=== PATIENT | male | born 1985 | race Caucasian/White ===

== ENCOUNTER 2021-06-18 19:29 | Emergency (ER) | payer BC, SELFPAY ==
--- NOTE | ~2021-06-18 | XR_ITS ---
EXAMINATION: XR CHEST CLINICAL INFORMATION: Chest pain COMPARISON: None TECHNIQUE: Frontal view of the chest was obtained. FINDINGS: Cardiac silhouette is normal in size. The lungs are well aerated. There is no lobar consolidation. Subtle lower lobe linear opacities are nonspecific but most suggestive of atelectasis. No pleural effusion or pneumothorax. 1 cm nodular density projecting over the right posterior fourth rib is nonspecific but statistically a bone island. XR/XR chest 1V IMPRESSION: Suspected bibasilar atelectasis.
[2021-06-18 19:36] VITALS: BP 139/70; PULSE 90; RESP 18; TEMP 36.6; O2SAT 98; BMI 28.5
--- NOTE | 2021-06-18 19:47 | ECG_ITS ---
Test Reason : CHEST PAIN Blood Pressure : / mmHG Vent. Rate : 067 BPM Atrial Rate : 067 BPM P-R Int : 134 ms QRS Dur : 104 ms QT Int : 364 ms P-R-T Axes : 057 -12 016 degrees QTc Int : 384 ms Sinus rhythm with marked sinus arrhythmia Otherwise normal ECG No previous ECGs available Referred By: Generic ED Physician Electronically Signed By:AWA DE SOUZA MD
[2021-06-18 20:04] LABS: MANUAL DIFF FLAG NO
[2021-06-18 20:07] LABS: Basophils Absolute Auto 0.1 X10*3/uL (0.0-0.2); Basophils Percent Auto 0.7 % (0-2); Eosinophils Absolute Auto 0.2 X10*3/uL (0.0-0.4); Eosinophils Percent Auto 2.7 % (0-4); Hematocrit 47.5 % (42-52); Hemoglobin 16.5 g/dl (14.0-18.0); Imm Gran Abs Auto 0.03 X10*3/uL (0.00-0.03); Imm Gran Pct Auto 0.3 % (0.0-0.4); Lymphocytes Absolute Auto 2.3 X10*3/uL (1.2-4.9); Mean Corpuscular HGB Conc 34.7 g/dl (31.0-36.0); Mean Corpuscular Hemoglobin 30.7 pg (27.0-33.0); Mean Corpuscular Volume 88.5 fL (80-98); Mean Platelet Volume 11.2 fL (9.4-12.4); Monocytes Absolute Auto 0.6 X10*3/uL (0.1-1.2); Monocytes Percent Auto 6.4 % (2-11); Neutrophils Absolute Auto 5.6 X10*3/uL (2.0-8.3); Neutrophils Percent Auto 63.9 % (45-73); Platelet Count 228 X10*3/uL (160-400); Red Blood Count 5.37 X10*6/uL (4.60-5.80); Red Cell Distribution Width 11.7 % (11.0-16.0); White Blood Count 8.8 X10*3/uL (4.8-10.8)
[2021-06-18 20:28] LABS: Anion Gap 13 (12-20); Blood Urea Nitrogen 18 mg/dL (9-16); Calcium 9.6 mg/dL (8.4-10.2); Carbon Dioxide 27 mmol/L (22-29); Chloride 104 mmol/L (96-108); Creatinine Clr Calc Pharmacy 80.6; Estimated Glomerular Filt Rate 52; Glucose Random 89 mg/dL (60-115); Sodium 140 mmol/L (135-145)
[2021-06-18 20:32] LABS: Troponin-I High Sensitivity < 3.5 ng/L (<3.5-35.0)
[2021-06-19 01:45] VITALS: BP 139/78; PULSE 57; RESP 16; TEMP 36.5; O2SAT 100
--- NOTE | 2021-06-19 02:05 | ED.CHESTPAIN ---
HPI - Chest Pain General Chief Complaint: Chest Pain Stated Complaint: chest pain Time Seen by Provider: 06/19/21 02:05 Source: patient Mode of arrival: ambulatory Limitations: no limitations History of Present Illness HPI narrative: Patient has been weaning off testosterone since April 12 complaining of dizziness nausea and decreased appetite chest pain off and on. Patient with multiple complaints has his increased anxiety. No chest pain at this time no palpitation Related Data Allergies Allergy/AdvReac Type Severity Reaction Status Date / Time No Known Allergies Allergy Verified 06/18/21 19:36 Review of Systems Review of Systems: Yes all other systems are reviewed and are negative [facility] Past Medical History Medical History Asthma Social History Social History Advance Directives: No Advance Directives Information Provided: No Physical Exam Vital Signs: Vital Signs: Last Vital Signs Temp 97.7 F 06/19/21 01:45 Pulse 57 06/19/21 01:45 Resp 16 06/19/21 01:45 BP 139/78 06/19/21 01:45 Pulse Ox 100 06/19/21 01:45 Body Mass Index 28.5 Appearance: Alert. Oriented X3. No acute distress. Eyes: No pallor or icterus ENT: Pharynx normal. Oral Mucosa moist Neck: Normal inspection. Neck supple. CVS: Normal heart rate and rhythm. Pulses normal. Respiratory: No respiratory distress. Equal air entry bilateral, no wheezing/rales/rhonchi Abdomen: Soft and nontender. Bowel sounds are present, no mass palpable, no CVA tenderness Skin: Skin warm and dry. Normal skin color. Normal skin turgor. Extremities: No lower extremity edema. No calf tenderness Neuro: Oriented X 3. No motor deficit. MDM - Chest Pain MDM Narrative Medical decision making narrative: Patient with in elevated creatinine secondary to medication testosterone which he was taking . Patient advised to drink plenty of fluids and follow with PCP to recheck kidney functions Lab Data Attestation: I reviewed the patient's lab results. Result diagrams: 06/18/21 19:57 06/18/21 19:57 Labs: Lab Results 06/18/21 06/18/21 06/18/21 Range/Units 19:57 19:57 19:57 WBC 8.8 (4.8-10.8) X10*3/uL RBC 5.37 (4.60-5.80) X10*6/uL Hgb 16.5 (14.0-18.0) g/dl Hct 47.5 (42-52) % MCV 88.5 (80-98) fL MCH 30.7 (27.0-33.0) pg MCHC 34.7 (31.0-36.0) g/dl RDW 11.7 (11.0-16.0) % Plt Count 228 (160-400) X10*3/uL MPV 11.2 (9.4-12.4) fL Immature Gran % (Auto) 0.3 (0.0-0.4) % Neut % (Auto) 63.9 (45-73) % Lymph % (Auto) 26.0 (20-40) % Alexander % (Auto) 6.4 (2-11) % Eos % (Auto) 2.7 (0-4) % Baso % (Auto) 0.7 (0-2) % Lymph # (Auto) 2.3 (1.2-4.9) X10*3/uL Alexander # (Auto) 0.6 (0.1-1.2) X10*3/uL Eos # (Auto) 0.2 (0.0-0.4) X10*3/uL Baso # (Auto) 0.1 (0.0-0.2) X10*3/uL Abs Immat Gran (auto) 0.03 (0.00-0.03) X10*3/uL Absolute Neuts (auto) 5.6 (2.0-8.3) X10*3/uL Absolute Nucleated RBC 0.000 (0.0-0.012) X10*3/uL Nucleated RBC % (auto) 0.0 (0.0-0.2) /100WBC Sodium 140 (135-145) mmol/L Potassium 4.0 (3.3-5.1) mmol/L Chloride 104 (96-108) mmol/L Carbon Dioxide 27 (22-29) mmol/L Anion Gap 13 (12-20) BUN 18 H (9-16) mg/dL Creatinine 1.56 H (0.5-1.4) mg/dL Estim Creat Clear Calc 80.6 Estimated GFR 52 Random Glucose 89 (60-115) mg/dL Calcium 9.6 (8.4-10.2) mg/dL Troponin I High Sens < 3.5 (<3.5-35.0) ng/L ECG Data ECG #1: Interpretation: Normal sinus rhythm with marked sinus arrhythmia heart rate 57 beats per minute no acute ischemic changes impression no acute ischemia Discharge Plan Discharge Clinical Impression: BENTLEY (acute kidney injury) Patient Disposition: Home, Self-Care Instructions: Acute Kidney Injury (DC) Additional Instructions: Drink plenty of fluids Do not take any medication which is not prescribed. Follow with PCP to recheck her kidney functions in 1 week Interventions: ED Discharge Assessment Last Done: 06/19/21 02:26
== END 2021-06-19 02:26 | disposition home or self-care (01) ==
PROVIDERS: Emergency Provider Internal Medicine; PCP Internal Medicine
DX: N17.9 Acute kidney failure, unspecified (principal); Z79.890 Hormone replacement therapy
CPT/HCPCS: 36415; 71045; 80048; 84484; 85025; 93005; 99283; 99284

== ENCOUNTER 2021-06-26 16:07 | Outpatient (REF) | payer BC, SELFPAY ==
--- NOTE | ~2021-06-26 | XR_ITS ---
EXAMINATION: XR CHEST CLINICAL INFORMATION: Atelectasis. COMPARISON: Chest radiograph dated 06/18/2021. TECHNIQUE: 2 views of the chest were obtained. FINDINGS: The lungs are clear. The cardiomediastinal silhouette is normal in size. There is no pleural effusion or pneumothorax. No acute osseous abnormality. XR/XR chest 2V IMPRESSION: No acute cardiopulmonary findings.
[2021-06-26 17:07] LABS: MANUAL DIFF FLAG NO
[2021-06-26 17:19] LABS: Basophils Percent Auto 0.6 % (0-2); Eosinophils Absolute Auto 0.2 X10*3/uL (0.0-0.4); Eosinophils Percent Auto 3.5 % (0-4); Hematocrit 47.1 % (42-52); Hemoglobin 16.2 g/dl (14.0-18.0); Imm Gran Abs Auto 0.01 X10*3/uL (0.00-0.03); Imm Gran Pct Auto 0.2 % (0.0-0.4); Lymphocytes Absolute Auto 2.3 X10*3/uL (1.2-4.9); Lymphocytes Percent Auto 36.9 % (20-40); Mean Corpuscular HGB Conc 34.4 g/dl (31.0-36.0); Mean Corpuscular Hemoglobin 30.6 pg (27.0-33.0); Mean Corpuscular Volume 88.9 fL (80-98); Mean Platelet Volume 12.2 fL (9.4-12.4); Monocytes Absolute Auto 0.4 X10*3/uL (0.1-1.2); Monocytes Percent Auto 7.1 % (2-11); Neutrophils Absolute Auto 3.2 X10*3/uL (2.0-8.3); Neutrophils Percent Auto 51.7 % (45-73); Platelet Count 217 X10*3/uL (160-400); Red Cell Distribution Width 11.5 % (11.0-16.0); White Blood Count 6.2 X10*3/uL (4.8-10.8)
[2021-06-26 17:37] LABS: Alanine Aminotransferase 30 U/L (0-40); Albumin Level 4.8 g/dL (3.5-5.0); Alkaline Phosphatase 49 U/L (39-117); Anion Gap 13 (12-20); Aspartate Amino Transferase 29 U/L (5-37); Bilirubin Total 0.3 mg/dL (0.0-1.0); Blood Urea Nitrogen 17 mg/dL (9-16); Calcium 9.6 mg/dL (8.4-10.2); Carbon Dioxide 28 mmol/L (22-29); Chloride 102 mmol/L (96-108); Estimated Glomerular Filt Rate 56; Glucose Random 88 mg/dL (60-115); Potassium 4.2 mmol/L (3.3-5.1); Sodium 139 mmol/L (135-145); Total Protein 7.7 g/dL (6.5-8.0)
== END 2021-06-26 16:08 | disposition home or self-care (01) ==
LOC: HO.XRAY 16:07
PROVIDERS: Physician Assistant; PCP Internal Medicine; Visit Provider Internal Medicine
DX: N17.9 Acute kidney failure, unspecified (principal)
CPT/HCPCS: 36415; 71046; 80053; 85025

== ENCOUNTER 2021-07-11 15:01 | Outpatient (REF) | payer BC, SELFPAY ==
[2021-07-11 15:27] LABS: MANUAL DIFF FLAG NO
[2021-07-11 15:30] LABS: Basophils Percent Auto 0.7 % (0-2); Eosinophils Absolute Auto 0.2 X10*3/uL (0.0-0.4); Hematocrit 46.1 % (42-52); Hemoglobin 16.2 g/dl (14.0-18.0); Imm Gran Abs Auto 0.01 X10*3/uL (0.00-0.03); Imm Gran Pct Auto 0.2 % (0.0-0.4); Lymphocytes Absolute Auto 1.7 X10*3/uL (1.2-4.9); Lymphocytes Percent Auto 30.5 % (20-40); Mean Corpuscular HGB Conc 35.1 g/dl (31.0-36.0); Mean Corpuscular Hemoglobin 30.7 pg (27.0-33.0); Mean Corpuscular Volume 87.5 fL (80-98); Mean Platelet Volume 11.3 fL (9.4-12.4); Monocytes Absolute Auto 0.4 X10*3/uL (0.1-1.2); Monocytes Percent Auto 6.8 % (2-11); Neutrophils Absolute Auto 3.2 X10*3/uL (2.0-8.3); Neutrophils Percent Auto 57.8 % (45-73); Platelet Count 209 X10*3/uL (160-400); Red Blood Count 5.27 X10*6/uL (4.60-5.80); Red Cell Distribution Width 11.4 % (11.0-16.0); White Blood Count 5.5 X10*3/uL (4.8-10.8)
[2021-07-11 15:46] LABS: Alanine Aminotransferase 38 U/L (0-40); Albumin Level 4.9 g/dL (3.5-5.0); Alkaline Phosphatase 50 U/L (39-117); Anion Gap 11 (12-20); Aspartate Amino Transferase 37 U/L (5-37); Bilirubin Total 0.6 mg/dL (0.0-1.0); Blood Urea Nitrogen 19 mg/dL (9-16); Calcium 9.9 mg/dL (8.4-10.2); Carbon Dioxide 30 mmol/L (22-29); Chloride 103 mmol/L (96-108); Estimated Glomerular Filt Rate 60; Glucose Random 82 mg/dL (60-115); Potassium 4.4 mmol/L (3.3-5.1); Sodium 140 mmol/L (135-145); Total Protein 7.9 g/dL (6.5-8.0)
== END 2021-07-11 15:02 | disposition home or self-care (01) ==
LOC: HO.LAB 15:01
PROVIDERS: PCP Internal Medicine; Visit Provider Physician Assistant
DX: N17.9 Acute kidney failure, unspecified (principal)
CPT/HCPCS: 36415; 80053; 85025

== ENCOUNTER 2021-08-29 15:57 | Outpatient (REF) | payer BC, SELFPAY ==
[2021-09-02 14:56] LABS: Testosterone, Free 54.2 pg/mL (35.0-155.0); Testosterone, Total 278 ng/dL (250-1100)
== END 2021-08-29 15:58 | disposition home or self-care (01) ==
LOC: HO.LAB 15:57
PROVIDERS: PCP Internal Medicine; Visit Provider Physician Assistant
DX: R79.89 Other specified abnormal findings of blood chemistry (principal)
CPT/HCPCS: 36415; 84402; 84403

== ENCOUNTER 2021-11-07 10:01 | Outpatient (REF) | payer BC, SELFPAY ==
[2021-11-07 11:39] LABS: Alanine Aminotransferase 44 U/L (0-40); Albumin Level 4.8 g/dL (3.5-5.0); Alkaline Phosphatase 45 U/L (39-117); Anion Gap 13 (12-20); Aspartate Amino Transferase 33 U/L (5-37); Bilirubin Total 0.5 mg/dL (0.0-1.0); Blood Urea Nitrogen 20 mg/dL (9-16); Calcium 9.9 mg/dL (8.4-10.2); Carbon Dioxide 28 mmol/L (22-29); Chloride 104 mmol/L (96-108); Cholesterol 177 mg/dL; Estimated Glomerular Filt Rate 58; Glucose Fasting 84 mg/dL (60-99); HDL Cholesterol 54 mg/dL; LDL Cholesterol Calculated 107 mg/dl; Potassium 4.2 mmol/L (3.3-5.1); Sodium 141 mmol/L (135-145); Total Protein 7.6 g/dL (6.5-8.0); Triglycerides 81 mg/dL
== END 2021-11-07 10:02 | disposition home or self-care (01) ==
LOC: HO.MANLDS 10:01
PROVIDERS: PCP Physician Assistant; Visit Provider Physician Assistant
DX: Z00.00 Encounter for general adult medical examination without abnormal findings (principal); N17.9 Acute kidney failure, unspecified
CPT/HCPCS: 36415; 80053; 80061

== ENCOUNTER 2022-03-12 10:06 | Outpatient (REF) | payer BC, SELFPAY ==
[2022-03-12 11:17] LABS: Hematocrit 44.4 % (42.0-52.0); Hemoglobin 15.3 g/dl (14.0-18.0); Mean Corpuscular HGB Conc 34.5 g/dl (31.0-36.0); Mean Corpuscular Hemoglobin 30.2 pg (27.0-33.0); Mean Corpuscular Volume 87.7 fL (80.0-98.0); Mean Platelet Volume 11.9 fL (9.4-12.4); Platelet Count 194 X10*3/uL (160-400); Red Blood Count 5.06 X10*6/uL (4.60-5.80); Red Cell Distribution Width 11.8 % (11.0-16.0); White Blood Count 4.8 X10*3/uL (4.8-10.8)
[2022-03-12 11:36] LABS: Alanine Aminotransferase 28 U/L (0-40); Albumin Level 4.9 g/dL (3.5-5.0); Alkaline Phosphatase 51 U/L (39-117); Anion Gap 11 (12-20); Aspartate Amino Transferase 31 U/L (5-37); Bilirubin Total 0.9 mg/dL (0.0-1.0); Blood Urea Nitrogen 18 mg/dL (9-16); C Reactive Protein 0.04 mg/dL (< or = 0.50); Calcium 10.7 mg/dL (8.4-10.2); Carbon Dioxide 29 mmol/L (22-29); Chloride 103 mmol/L (96-108); Cholesterol 176 mg/dL; Estimated Glomerular Filt Rate 58; Gamma Glutamyl Transpeptidase 23 U/L (11-51); Glucose Random 86 mg/dL (60-115); HDL Cholesterol 56 mg/dL; LDL Cholesterol Calculated 104 mg/dl; Potassium 4.1 mmol/L (3.3-5.1); Sodium 139 mmol/L (135-145); Triglycerides 82 mg/dL
[2022-03-12 11:46] LABS: Free T4 (Free Thyroxine) 1.09 ng/dL (0.71-1.85); Thyroid Stimulating Hormone 1.32 uIU/mL (0.32-4.0)
[2022-03-12 12:18] LABS: Insulin 6 uU/mL (2-29)
[2022-03-13 14:11] LABS: Calcium (PTHI) 10.1 mg/dL (8.6-10.3); PTHI 37 pg/mL (16-77)
[2022-03-14 06:56] LABS: Triiodothyronine T3 Free 3.4 pg/mL (2.3-4.2)
[2022-03-14 07:21] LABS: Follicle Stimulating Hormone 5.5 mIU/mL (1.6-8.0); Lutenizing Hormone 2.7 mIU/mL (1.5-9.3)
[2022-03-14 08:11] LABS: DHEA Sulfate 366 mcg/dL (93-415)
[2022-03-14 10:26] LABS: Thyroglobulin Antibodies <1 IU/mL (< or = 1); Thyroid Peroxidase Antibodies 1 IU/mL (<9)
[2022-03-14 16:57] LABS: Homocysteine 9.1 umol/L (<11.4)
[2022-03-18 04:27] LABS: Dihydrotestosterone 35 ng/dL (12-65)
[2022-03-18 16:12] LABS: Testosterone, Free 61.5 pg/mL (35.0-155.0); Testosterone, Total 392 ng/dL (250-1100)
[2022-03-19 08:06] LABS: Triiodothyronine T3 Reverse 19 ng/dL (8-25)
[2022-03-21 22:17] LABS: Estradiol Free 0.42 pg/mL; Estradiol, Ultrasensitive 20 pg/mL (< OR = 29)
== END 2022-03-12 10:07 | disposition home or self-care (01) ==
LOC: HO.LAB 10:06
PROVIDERS: PCP Internal Medicine; Visit Provider Internal Medicine
DX: E03.9 Hypothyroidism, unspecified (principal); E29.1 Testicular hypofunction; E11.9 Type 2 diabetes mellitus without complications; D64.9 Anemia, unspecified; K76.0 Fatty (change of) liver, not elsewhere classified; R53.83 Other fatigue; E55.9 Vitamin D deficiency, unspecified
CPT/HCPCS: 36415; 80053; 80061; 82306; 82627; 82642; 82670; 82681; 82977; 83001; 83002; 83090; 83525; 83970; 84402; 84403; 84439; 84443; 84481; 84482; 85027; 86140; 86376; 86800

== ENCOUNTER 2022-05-29 09:16 | Outpatient (REF) | payer BC, SELFPAY ==
[2022-05-29 09:40] LABS: Hematocrit 46.4 % (42.0-52.0); Mean Corpuscular HGB Conc 34.5 g/dl (31.0-36.0); Mean Corpuscular Hemoglobin 30.2 pg (27.0-33.0); Mean Corpuscular Volume 87.7 fL (80.0-98.0); Mean Platelet Volume 10.9 fL (9.4-12.4); Platelet Count 245 X10*3/uL (160-400); Red Blood Count 5.29 X10*6/uL (4.60-5.80); White Blood Count 5.9 X10*3/uL (4.8-10.8)
[2022-05-29 09:55] LABS: Alanine Aminotransferase 28 U/L (0-40); Albumin Level 4.8 g/dL (3.5-5.0); Alkaline Phosphatase 50 U/L (39-117); Anion Gap 10 (12-20); Aspartate Amino Transferase 30 U/L (5-37); Bilirubin Total 0.8 mg/dL (0.0-1.0); Blood Urea Nitrogen 13 mg/dL (9-16); Calcium 9.4 mg/dL (8.4-10.2); Carbon Dioxide 28 mmol/L (22-29); Chloride 104 mmol/L (96-108); Estimated Glomerular Filt Rate 58; Glucose Random 90 mg/dL (60-115); Potassium 4.4 mmol/L (3.3-5.1); Sodium 138 mmol/L (135-145); Total Protein 7.6 g/dL (6.5-8.0)
[2022-05-29 10:14] LABS: Prostate Specific Antigen 0.57 ng/mL (<0.05-4.0)
[2022-06-06 04:51] LABS: Estradiol Free 1.12 pg/mL; Estradiol, Ultrasensitive 52 pg/mL (< OR = 29)
== END 2022-05-29 09:17 | disposition home or self-care (01) ==
LOC: HO.LAB 09:16
PROVIDERS: PCP Internal Medicine; Referring Provider Internal Medicine; Visit Provider Physician Assistant
DX: Z12.5 Encounter for screening for malignant neoplasm of prostate (principal); N19 Unspecified kidney failure; E29.1 Testicular hypofunction; E11.9 Type 2 diabetes mellitus without complications; D64.9 Anemia, unspecified; R53.83 Other fatigue
CPT/HCPCS: 80053; 82610; 82642; 82670; 82681; 84153; 84402; 84403; 85027

== ENCOUNTER 2022-07-27 08:49 | Outpatient (REF) | payer BC, SELFPAY | END 2022-07-27 08:50 | disposition home or self-care (01) | LOC: HO.LAB 08:49 | PROVIDERS: PCP Internal Medicine; Visit Provider Physician Assistant | DX: Z13.89 Encounter for screening for other disorder (principal) ==

== ENCOUNTER 2023-02-26 18:15 | Emergency (ER) | payer BC, SELFPAY ==
--- NOTE | ~2023-02-26 | CT_ITS ---
EXAMINATION: CT HEAD WITHOUT CONTRAST CLINICAL INFORMATION: dizziness/facial and arm numbness COMPARISON: None. TECHNIQUE: Multidetector volumetric imaging of the head was performed without intravenous contrast material. This CT examination was performed using dose optimization techniques as appropriate, variously including the following: *Automated exposure control *Adjustment of mA and/or kV according to patient size (this includes techniques or standardized protocols for targeted exams where dose is matched to indication/reason for exam; i.e. extremities or head) *Use of iterative reconstruction technique Dose: 636 mGy-cm FINDINGS: There is no evidence of acute intracranial hemorrhage or territorial infarction. No abnormal mass-effect or midline shift is seen. Stovall to white matter differentiation is well preserved. No extra axial fluid collections. The ventricles are normal in size and configuration. There is no abnormal attenuation within the brain parenchyma. The soft tissues and osseous structures are normal. The sinuses and mastoid air cells are clear. CT/CT head/brain wo IV con IMPRESSION: No acute intracranial pathology.
[2023-02-26 18:18] VITALS: BP 147/94; PULSE 78; RESP 18; TEMP 36.1; O2SAT 99; BMI 28.5
--- NOTE | 2023-02-26 18:18 | ED.NEUROSD ---
HPI - Neuro Symptoms/Deficit General Chief Complaint: General Medical Stated Complaint: dizziness,numbness to face Time Seen by Provider: 02/26/23 18:57 Related Data Previous Rx's Medication Instructions Recorded alprazolam 0.5 mg tablet (Xanax) 0.5 mg PO TID PRN anxiety #5 tabs 02/26/23 Allergies Allergy/AdvReac Type Severity Reaction Status Date / Time No Known Allergies Allergy Verified 02/26/23 18:21 [facility] Past Medical History Medical History Asthma Social History Social History Alcohol intake: current Alcohol intake frequency: a few times a week Smoked in Last 30 Days: No Use of substances other than those prescribed or required for medical reasons: No Advance Directives: No Advance Directives Information Provided: No Physical Exam Vital Signs: Vital Signs: Last Vital Signs Temp 97.5 F 02/26/23 19:47 Pulse 62 02/26/23 20:09 Resp 17 02/26/23 20:09 BP 128/79 02/26/23 20:09 Pulse Ox 99 02/26/23 19:47 O2 Del Method Room Air 02/26/23 20:09 BMI result Body Mass Index 28.5 Course Course Course Narrative: This is a rapid medical exam. Deferred additional HPI, ROS, PE to primary provider. 37 yo male with a history of asthma, on low dose testosterone here with complaints of intermittent episodes of dizziness described as feeling lightheaded, facial numbness, arm numbness, feels his jaw his tight x several months. Will obtain labs, EKG, CT head. VSS Medical Decision Making Lab Data 02/26/23 19:00 02/26/23 19:00 Labs: Lab Results 02/26/23 02/26/23 02/26/23 Range/Units 19:00 19:00 19:00 WBC 6.1 (4.8-10.8) X10*3/uL RBC 5.34 (4.60-5.80) X10*6/uL Hgb 16.3 (14.0-18.0) g/dl Hct 46.5 (42.0-52.0) % MCV 87.1 (80.0-98.0) fL MCH 30.5 (27.0-33.0) pg MCHC 35.1 (31.0-36.0) g/dl RDW 12.1 (11.0-16.0) % Plt Count 238 (160-400) X10*3/uL MPV 11.2 (9.4-12.4) fL Immature Gran % (Auto) 0.2 (0.0-0.4) % Neut % (Auto) 56.9 (45-73) % Lymph % (Auto) 34.3 (20-40) % Woodford % (Auto) 5.4 (2-11) % Eos % (Auto) 2.5 (0-4) % Baso % (Auto) 0.7 (0-2) % Lymph # (Auto) 2.1 (1.2-4.9) X10*3/uL [place]ford # (Auto) 0.3 (0.1-1.2) X10*3/uL Eos # (Auto) 0.2 (0.0-0.4) X10*3/uL Baso # (Auto) 0.0 (0.0-0.2) X10*3/uL Abs Immat Gran (auto) 0.01 (0.00-0.03) X10*3/uL Absolute Neuts (auto) 3.5 (2.0-8.3) x10*3/uL Absolute Nucleated RBC 0.000 (0.0-0.012) X10*3/uL Nucleated RBC % (auto) 0.0 (0.0-0.2) /100WBC Sodium 141 (135-145) mmol/L Potassium 3.9 (3.3-5.1) mmol/L Chloride 105 (96-108) mmol/L Carbon Dioxide 29 (22-29) mmol/L Anion Gap 11 L (12-20) BUN 15 (9-16) mg/dL Creatinine 1.30 (0.5-1.4) mg/dL Estim Creat Clear Calc 94.9 Estimated GFR > 60 Random Glucose 84 (60-115) mg/dL Calcium 9.6 (8.4-10.2) mg/dL Magnesium 2.2 (1.6-2.6) mg/dL Total Bilirubin 0.9 (0.0-1.0) mg/dL Direct Bilirubin 0.3 (0.0-0.5) mg/dL AST 35 (5-37) U/L ALT 34 (0-40) U/L Alkaline Phosphatase 54 (39-117) U/L Troponin I High Sens < 2.7 (<3.5-35.0) ng/L Total Protein 7.5 (6.5-8.0) g/dL Albumin 4.7 (3.5-5.0) g/dL Discharge Plan Discharge Clinical Impression: Anxiety Patient Disposition: Home, Self-Care Instructions: Anxiety (ED) Prescriptions: New alprazolam [Xanax] 0.5 mg tablet 0.5 mg PO TID PRN (Reason: anxiety) Qty: 5 0RF Referrals: Panchito Mercado MD [Primary Care Provider] - Interventions: ED Discharge Assessment Last Done: 02/26/23 20:19 Discharge Date/Time: 02/26/23 20:20
--- NOTE | 2023-02-26 18:20 | ECG_ITS ---
Test Reason : Dissiness Blood Pressure : / mmHG Vent. Rate : 062 BPM Atrial Rate : 062 BPM P-R Int : 154 ms QRS Dur : 104 ms QT Int : 378 ms P-R-T Axes : 054 -01 013 degrees QTc Int : 383 ms Normal sinus rhythm with sinus arrhythmia Incomplete right bundle branch block Borderline ECG When compared with ECG of 18-JUN-2021 19:51, No significant change was found Referred By: Jasmine Mckeon Electronically Signed By:RUSH NUNES
[2023-02-26 19:05] LABS: MANUAL DIFF FLAG NO
[2023-02-26 19:11] LABS: Basophils Percent Auto 0.7 % (0-2); Eosinophils Absolute Auto 0.2 X10*3/uL (0.0-0.4); Eosinophils Percent Auto 2.5 % (0-4); Hematocrit 46.5 % (42.0-52.0); Hemoglobin 16.3 g/dl (14.0-18.0); Imm Gran Abs Auto 0.01 X10*3/uL (0.00-0.03); Imm Gran Pct Auto 0.2 % (0.0-0.4); Lymphocytes Absolute Auto 2.1 X10*3/uL (1.2-4.9); Lymphocytes Percent Auto 34.3 % (20-40); Mean Corpuscular HGB Conc 35.1 g/dl (31.0-36.0); Mean Corpuscular Hemoglobin 30.5 pg (27.0-33.0); Mean Corpuscular Volume 87.1 fL (80.0-98.0); Mean Platelet Volume 11.2 fL (9.4-12.4); Monocytes Absolute Auto 0.3 X10*3/uL (0.1-1.2); Monocytes Percent Auto 5.4 % (2-11); Neutrophils Absolute Auto 3.5 x10*3/uL (2.0-8.3); Neutrophils Percent Auto 56.9 % (45-73); Platelet Count 238 X10*3/uL (160-400); Red Blood Count 5.34 X10*6/uL (4.60-5.80); Red Cell Distribution Width 12.1 % (11.0-16.0); White Blood Count 6.1 X10*3/uL (4.8-10.8)
--- NOTE | 2023-02-26 19:14 | ED_ITS ---
HPI - General Adult General Chief complaint: General Medical Stated complaint: dizziness,numbness to face Time Seen by Provider: 02/26/23 18:57 History of Present Illness HPI narrative: Patient is a 37-year-old male with a history of anxiety. Patient felt dizzy feels tingling sensation over the face over the arm been ongoing for weeks. Had neck pain to the bilateral side aspect worse with turning his head that is been ongoing for few weeks. Patient was seen at urgent care told was more likely musculoskeletal. He has no focal weakness. He has no changes in speech. He has no recreational drug use other than marijuana. Patient denies any history of diabetes, hypertension, high cholesterol, smoking. No history of [place]. patient from home. No sudden in the family. No travel history no leg pain. No leg cramping. No diaphoresis. No sudden deaths in the family. He claims he got his testosterone level checked. The slightly low he was on testosterone treatment. No anabolic steroids. Related Data Previous Rx's Medication Instructions Recorded alprazolam 0.5 mg tablet (Xanax) 0.5 mg PO TID PRN anxiety #5 tabs 02/26/23 Allergies Allergy/AdvReac Type Severity Reaction Status Date / Time No Known Allergies Allergy Verified 02/26/23 18:21 Review of Systems Review of Systems: No fever no chills no chest pain or shortness of breath. Positive tingling sensation over bilateral hands in feeds Yes all other systems are reviewed and are negative [facility] Past Medical History Attestation statement: The following information was validated with the patient. Medical History Asthma Social History Social History Alcohol intake: current Alcohol intake frequency: a few times a week Smoked in Last 30 Days: No Use of substances other than those prescribed or required for medical reasons: No Advance Directives: No Advance Directives Information Provided: No Physical Exam ED Vital Signs: Vital Signs - 24 hr 02/26/23 18:18 02/26/23 19:47 Temperature 97.0 F 97.5 F Pulse Rate 78 65 Respiratory Rate 18 18 Blood Pressure 147/94 H 129/73 Pulse Oximetry 99 99 Oxygen Delivery Method Room Air Room Air BMI result Body Mass Index 28.5 Appearance: Alert. Oriented X3. No acute distress. Eyes: Pupils equal, round and reactive to light. ENT: Pharynx normal. Neck: Normal inspection. Neck supple. No lymph nodes noted. No crepitus CVS: Normal heart rate and rhythm. Pulses normal. Normal S1 and S2 Respiratory: No respiratory distress. Breath sounds normal. No Wheezing. No rales Abdomen: Soft and nontender. No rigidity. No distention. good BS x4 Skin: Skin warm and dry. Normal skin color. Normal skin turgor. Extremities: No lower extremity edema. Neurovascular intact to all extremities. No Lacerations. No Rash Neuro: Oriented X 3. No motor deficit. No sensory deficit. Moving all extermities. No slurred speech. Cranial nerve intact NIH Stroke Scale Internal: Initial- Upon Arrival Time: 19:17 Level of Consciousness: Alert Level of Consciousness Questions: Answers both questions correctly Level of Consciousness Commands: Performs both tasks correctly Best Gaze: Normal Visual: No visual loss Facial Palsy: Normal Motor Arm (Right): No drift Motor Arm (Left): No drift Motor Leg (Right): No drift Motor Leg (Left): No drift Limb Ataxia: Absent Sensory: Normal Best Language: No aphasia Dysarthia: Normal Extinction and Inattention: No abnormality Score: 0 Medical Decision Making Medical Decision Making [facility] Narrative: Patient is well appearing has diffuse tingling. Question neck pain. His neck is completely supple. Pain is been ongoing. Less likely secondary to meni ngitis. More likely secondary to musculoskeletal pain and anxiety. He has no significant cardiac risk factor. Patient's hemoglobin is normal. No evidence of anemia. His EKG is normal. His troponin is negative. He is 37 years old. His heart score is less than 3. Will have patient follow-up on an outpatient basis. A Joint decision was made with him. More likely patient's symptoms secondary to anxiety. We will give a small dose of Xanax for the next few days. Will have patient closely follow-up with his primary physician. In stable condition. Differential Diagnosis Differential Diagnoses: The differential diagnosis associated with the presentation includes Anxiety, neck pain, depression Admission/Observation Consideration of admission/observation: Escalation of care including admission/observation considered No need for admission is patient is well appearing neurologically intact. Lab Data [facility] Lab Attestation statement: I reviewed the patient's lab results. 02/26/23 19:00 02/26/23 19:00 Labs: Lab Results 02/26/23 02/26/23 02/26/23 Range/Units 19:00 19:00 19:00 WBC 6.1 (4.8-10.8) X10*3/uL RBC 5.34 (4.60-5.80) X10*6/uL Hgb 16.3 (14.0-18.0) g/dl Hct 46.5 (42.0-52.0) % MCV 87.1 (80.0-98.0) fL MCH 30.5 (27.0-33.0) pg MCHC 35.1 (31.0-36.0) g/dl RDW 12.1 (11.0-16.0) % Plt Count 238 (160-400) X10*3/uL MPV 11.2 (9.4-12.4) fL Immature Gran % (Auto) 0.2 (0.0-0.4) % Neut % (Auto) 56.9 (45-73) % Lymph % (Auto) 34.3 (20-40) % Cameron % (Auto) 5.4 (2-11) % Eos % (Auto) 2.5 (0-4) % Baso % (Auto) 0.7 (0-2) % Lymph # (Auto) 2.1 (1.2-4.9) X10*3/uL Cameron # (Auto) 0.3 (0.1-1.2) X10*3/uL Eos # (Auto) 0.2 (0.0-0.4) X10*3/uL Baso # (Auto) 0.0 (0.0-0.2) X10*3/uL Abs Immat Gran (auto) 0.01 (0.00-0.03) X10*3/uL Absolute Neuts (auto) 3.5 (2.0-8.3) x10*3/uL Absolute Nucleated RBC 0.000 (0.0-0.012) X10*3/uL Nucleated RBC % (auto) 0.0 (0.0-0.2) /100WBC Sodium 141 (135-145) mmol/L Potassium 3.9 (3.3-5.1) mmol/L Chloride 105 (96-108) mmol/L Carbon Dioxide 29 (22-29) mmol/L Anion Gap 11 L (12-20) BUN 15 (9-16) mg/dL Creatinine 1.30 (0.5-1.4) mg/dL Estim Creat Clear Calc 94.9 Estimated GFR > 60 Random Glucose 84 (60-115) mg/dL Calcium 9.6 (8.4-10.2) mg/dL Magnesium 2.2 (1.6-2.6) mg/dL Total Bilirubin 0.9 (0.0-1.0) mg/dL Direct Bilirubin 0.3 (0.0-0.5) mg/dL AST 35 (5-37) U/L ALT 34 (0-40) U/L Alkaline Phosphatase 54 (39-117) U/L Troponin I High Sens < 2.7 (<3.5-35.0) ng/L Total Protein 7.5 (6.5-8.0) g/dL Albumin 4.7 (3.5-5.0) g/dL Independent Interpretation I performed an independent interpretation of an: EKG Interpretation: Sinus heart rate is 70 MT QRS QT within normal limits there is no acute ST segment elevation noted. Discharge Plan Discharge Clinical Impression: Anxiety Patient Disposition: Home, Self-Care Instructions: Anxiety (ED) Prescriptions: New alprazolam [Xanax] 0.5 mg tablet 0.5 mg PO TID PRN (Reason: anxiety) Qty: 5 0RF Referrals: Panchito Mercado MD [Primary Care Provider] -
[2023-02-26 19:27] LABS: Alanine Aminotransferase 34 U/L (0-40); Albumin Level 4.7 g/dL (3.5-5.0); Alkaline Phosphatase 54 U/L (39-117); Anion Gap 11 (12-20); Aspartate Amino Transferase 35 U/L (5-37); Bilirubin Direct 0.3 mg/dL (0.0-0.5); Bilirubin Total 0.9 mg/dL (0.0-1.0); Blood Urea Nitrogen 15 mg/dL (9-16); Calcium 9.6 mg/dL (8.4-10.2); Carbon Dioxide 29 mmol/L (22-29); Chloride 105 mmol/L (96-108); Creatinine Clr Calc Pharmacy 94.9; Estimated Glomerular Filt Rate > 60; Glucose Random 84 mg/dL (60-115); Magnesium 2.2 mg/dL (1.6-2.6); Potassium 3.9 mmol/L (3.3-5.1); Sodium 141 mmol/L (135-145); Total Protein 7.5 g/dL (6.5-8.0)
[2023-02-26 19:28] LABS: Troponin-I High Sensitivity < 2.7 ng/L (<3.5-35.0)
--- NOTE | 2023-02-26 19:30 | PC.NURSE ---
Patient presenting with dizziness and facial numbness. Patient sinus on monitor and is moving all extremities without issue.
[2023-02-26 19:47] VITALS: BP 129/73; PULSE 65; RESP 18; TEMP 36.4; O2SAT 99
[2023-02-26 20:09] VITALS: BP 128/79; PULSE 62; RESP 17
== END 2023-02-26 20:20 | disposition home or self-care (01) ==
PROVIDERS: Nurse Practitioner Family; Emergency Provider Emergency Medicine Emergency Medical Services; PCP Internal Medicine
DX: R42 Dizziness and giddiness (principal); R94.31 Abnormal electrocardiogram [ECG] [EKG]; R20.0 Anesthesia of skin; F41.1 Generalized anxiety disorder; F43.0 Acute stress reaction; R51.9 Headache, unspecified; Z79.899 Other long term (current) drug therapy
CPT/HCPCS: 36415; 70450; 80048; 80076; 83735; 84484; 85025; 93005; 99284

== ENCOUNTER 2025-10-31 10:50 | Outpatient (REF) | payer BC, SELFPAY ==
--- OUTSIDE RECORDS SUMMARY | 2025-10-31 13:34 | XMS_ITS ---
Author Name [facility] Organization Unknown Results Test Name/Text Value Interpretation Date Range Source T vaginalis rRNA Spec Ql UMBERTO+probe NOT DETECTED Normal 12/27/2024 - [facility] gonorrhoea rRNA Spec Ql UMBERTO+probe NOT DETECTED Normal 12/27/2024 - [facility] COMMENT Normal 12/27/2024 [facility] trach rRNA Spec Ql UMBERTO+probe NOT DETECTED Normal 2024 - [facility] History of Medication Use Medication Directions Dispensed Refills Start Date End Date Stat us predniSONE (DELTASONE) 10 MG tablet Take 40 mg (= 4 tablets) by mouth daily for 2 days, then 30 mg (= 3 tablets) daily for 2 days, then 20 mg (= 2 tablets) daily for 2 days, then 10 mg (= 1 tablet) daily for 2 days. Take with food. 02/16/2025 active benzonatate (TESSALON) 100 MG capsule Swallow whole one (100mg) capsule by mouth 3 times a day as needed.Do not break, chew, dissolve, cut or crush. 01/06/2025 active guaiFENesin (MUCINEX) 600 mg Ta12 Take 600-1,200 mg by mouth 2 (two) times a day as needed (Cough) for up to 7 days Max dose 2,400mg per day. 01/06/2025 active fluticasone propionate (FLONASE) 50 mcg/actuation nasal spray Instill 2 sprays into each nostril daily 03/12/2024 aborted amoxicillin (AMOXIL) 500 MG capsule Take 1 capsule (500 mg total) by mouth 2 (two) times a day. 10/25/2022 active albuterol (VENTOLIN HFA) 90 mcg/actuation inhaler Inhale 2 puffs every 6 (six) hours as needed for wheezing active testosterone cypionate (DEPO-TESTOTERONE CYPIONATE) 100 mg/mL injection Inject 160 mg into the shoulder, thigh, or buttocks every 14 days (2 weeks). Twice weekly active testosterone cypionate (DEPOTESTOTERONE CYPIONATE) 100 mg/mL injection Inject 1.6 mL (160 mg total) intramuscularly active Problems Problem Status Onset Date Problem Type Date of Resolution Source Excessive cerumen in ear canal, left active EncounterDiagnosisAct [facility] Tinnitus aurium, left active EncounterDiagnosisAct [facility] Fever, unspecified fever cause active EncounterDiagnosisAct [facility] Elevated blood-pressure reading without diagnosis of hypertension active EncounterDiagnosisAct [facility] Influenza due to other identified influenza virus with other respiratory manifestations active EncounterDiagnosisAct [facility] Influenza with respiratory manifestation other than pneumonia active EncounterDiagnosisAct [facility] Encounters Encounter Type Encounter Reason Primary Diagnosis Location Date Ambulatory Earache [facility]ache [facility] 02/16/2025 Ambulatory Fever Fever, unspecified [facility] 01/06/2025 Ambulatory Contact with and (suspected) exposure to infections with a predominantly sexual mode of transmission Contact with and (suspected) exposure to infections with a predominantly sexual mode of transmission [facility] 12/24/2024 Ambulatory Streptococcal pharyngitis [facility] 10/25/2022 Care Team Organization Name Specialty Phone Email Start Date End Da te [facility] 10/22/2025 [facility] MAC MERCADO Primary Care 01/07/2025 Office of the Plant Care Worker ([facility]) 09/24/2024 [facility] Mac Mercado [facility] Primary Care 06/09/2023 06/09/2023 [facility] 10/25/2022 03/21/2025 [facility] 10/25/2022 10/25/2022
--- OUTSIDE RECORDS SUMMARY | 2025-10-31 13:34 | XMS_ITS | Clinical Summary ---
Author Organization [facility] Address [address] [place] [id number] Care Team Providers Care Welder Gun Name Role Phone Unknown Primary Care Provider [phone] Allergies No known active allergies Medications testosterone cypionate (DEPO-TESTOTERO NE CYPIONATE) 100 mg/mL injection Inject 160 mg into the shoulder, thigh, or buttocks every 14 days (2 weeks). Twice weekly Active amoxicillin (AMOXIL) 500 MG capsuleIndicati ons:Strep throat Take 1 capsule (500 mg total) by mouth 2 (two) times a day. 20 capsule 10/25/2022 Active predniSONE (DELTASONE) 10 MG tabletIndicatio ns:Tinnitus aurium, left Take 40 mg (= 4 tablets) by mouth daily for 2 days, then 30 mg (= 3 tablets) daily for 2 days, then 20 mg (= 2 tablets) daily for 2 days, then 10 mg (= 1 tablet) daily for 2 days. Take with food. 20 tablet 02/16/2025 Active Active Problems No known active problems Social History Tobacco Use Types Packs/Day Years Used Date Smoking Tobacco: Never Smokeless Tobacco: Never Tobacco Cessation:Counseling Given: Not Answered Alcohol Use Standard Drinks/Week Comments Yes 0 (1 standard drink = 0.6 oz pur e alcohol) socially Sex and Gender Information Value Date Recorded Sex Assigned at Not on file Legal Sex Male 4:45 PM EDT Gender Identity Not on file Sexual Orientation Not on file Last Filed Vital Signs Vital Sign Reading Time Taken Comments Blood Pressure 137/91 02/16/2025 3:37 PM EDT Pulse 79 02/16/2025 3:24 PM EDT Temperature 36.6 C (97.9 F) 02/16/2025 3:24 PM EDT Respiratory Rate 16 02/16/2025 3:24 PM EDT Oxygen Saturation 100% 02/16/2025 3:24 PM EDT Inhaled Oxygen Concentration - - Weight 102 kg (225 lb) 02/16/2025 3:24 PM EDT Height - - Body Mass Index - - Plan of Treatment Health Maintenance Due Date Last Done Comments Hepatitis C Virus Screening 1987 HIV Screening 2000 DTaP/Tdap/Td Vaccines (1 - Tdap) 2006 Hepatitis B Vaccines (1 of 3 - 19+ 3-dose series) 2006 Influenza Vaccine 06/10/2025 08/24/2020 COVID-19 Vaccine (2024-2 6 season) 2025 01/18/2021, 12/13/2020 HPV Vaccines (No Doses Required) Completed Pneumococcal Vaccine: Pediatric (0-5 Years) and At-Risk Patients (6 to 49 Years) Aged Out No longer eligible b ased on patient's age to complete this topic Insurance [place] [phone] [facility] Care Teams Welder Gun Relationship Specialty Start Date End Date Unknown Unknow Provider Address PCP - General 03/24/20
--- OUTSIDE RECORDS SUMMARY | 2025-10-31 13:34 | XMS_ITS | Clinical Summary ---
Author Organization [facility] Address [address] [place] [address] Care Team Providers Care Peer Specialist Name Role Phone Sabra Candelaria Primary Care Provider Unavailabl e Social History Tobacco Use Types Packs/Day Years Used Date Smoking Tobacco: Never Assessed Sex and Gender Information Value Date Recorded Sex Assigned at Not on file Legal Sex Male 8:45 PM EDT Gender Identity Not on file Sexual Orientation Not on file Plan of Treatment Health Maintenance Due Date Last Done Comments Hepatitis C Screening 1987 DTaP/Tdap/Td (1 - Tdap) 2005 Hep B (1 of 3 - 19+ 3-dose series) 2006 COVID-19 Vaccine ( - 2024-2 6 season) 2025 Influenza (#1) 2025 Zoster (Shingrix) (1 of 2) 2037 HPV Vaccine (No Doses Required) Completed Hep A Aged Out No longer eligi ble based on patient's age to complete this topic Hib Aged Out No longer eligi ble based on patient's age to complete this topic Meningococcal ACWY Aged Out No longer eligible based on patient's age to complete this topic Pneumococcal Aged Out No longer eligi ble based on patient's age to complete this topic Care Teams Peer Specialist Relationship Specialty Start Date End Date Sabra Candelaria PCP - General 06/16/23
[2025-10-31 13:49] LABS: MANUAL DIFF FLAG NO
[2025-10-31 13:53] LABS: Hematocrit 48.1 % (42.0-52.0); Hemoglobin 16.7 g/dl (14.0-18.0); Imm Gran Abs Auto 0.02 X10*3/uL (0.00-0.03); Imm Gran Pct Auto 0.4 % (0.0-0.4); Lymphocytes Absolute Auto 1.5 X10*3/uL (1.2-4.9); Mean Corpuscular HGB Conc 34.7 g/dl (31.0-36.0); Mean Corpuscular Hemoglobin 30.3 pg (27.0-33.0); Mean Corpuscular Volume 87.3 fL (80.0-98.0); NRBC Abs Auto 0.000 X10*3/uL (0.0-0.012); NRBC Pct Auto 0.0 /100WBC (0.0-0.2); Platelet Count 231 X10*3/uL (160-400); Red Blood Count 5.51 X10*6/uL (4.60-5.80); White Blood Count 5.2 X10*3/uL (4.8-10.8)
[2025-10-31 14:47] LABS: Alanine Aminotransferase 37 U/L (0-40); Albumin Level 5.0 g/dL (3.5-5.0); Alkaline Phosphatase 56 U/L (39-117); Anion Gap 12 (12-20); Aspartate Amino Transferase 36 U/L (5-37); Blood Urea Nitrogen 18 mg/dL (9-16); Calcium 9.8 mg/dL (8.4-10.2); Carbon Dioxide 29 mmol/L (22-29); Chloride 104 mmol/L (96-108); Cholesterol 177 mg/dL (<200); Estimated Glomerular Filt Rate 59; HDL Cholesterol 50 mg/dL (>40); Potassium 4.4 mmol/L (3.3-5.1); Sodium 141 mmol/L (135-145); Total Protein 7.8 g/dL (6.5-8.0); Triglycerides 139 mg/dL (<150)
== END 2025-10-31 10:51 | disposition home or self-care (01) ==
LOC: HO.MANLDS 10:50
PROVIDERS: Visit Provider Internal Medicine
DX: Z00.00 Encounter for general adult medical examination without abnormal findings (principal)
CPT/HCPCS: 36415; 80053; 80061; 82306; 85025